=== PATIENT | male | born 1950 | race Caucasian/White ===

== ENCOUNTER 2021-03-11 12:06 | Inpatient (IN) | payer MEDICARE, OTHER ==
[~2021-03-11] VITALS: Ht 157.5 cm; Wt 85.3 kg
[~2021-03-11 12:06] MED LIST: LIPITOR; LISINOPRIL; NITRO; Percocet 5-3251 EACH PO
[2021-03-11 13:33] LABS: BASOPHILS ABSOLUTE AUTO 0.03 K/mm3 (0.00-0.23); BASOPHILS PERCENT AUTO 0 % (0-2); EOSINOPHILS PERCENT AUTO 0 % (0-6); Hemoglobin 14.4 g/dL (13.5-17.5); IMMATURE GRAN ABSOLUTE AUTO 0.03 K/mm3 (0.00-0.10); IMMATURE GRAN PERCENT AUTO 0 % (0-1); LYMPHOCYTES ABSOLUTE AUTO 1.02 K/mm3 (0.84-5.20); LYMPHOCYTES PERCENT AUTO 9 % (21-46); MONOCYTES ABSOLUTE AUTO 0.51 K/mm3 (0.16-1.47); MONOCYTES PERCENT AUTO 5 % (4-13); Mean Corpuscular HGB 30.6 pg (26.0-34.0); Mean Corpuscular HGB Conc 34.3 g/dL (31.5-36.5); Mean Corpuscular Volume 89 fL (80-100); Mean Platelet Volume 11.3 fL (9.1-12.4); NEUTROPHILS ABSOLUTE AUTO 9.68 K/mm3 (1.96-9.15); NEUTROPHILS PERCENT AUTO 86 % (41-73); Platelet Count 222 K/mm3 (150-400); RDW Coefficient Variation 14.3 % (11.7-14.2); RDW Standard Deviation 47.1 fL (35.1-46.3); Red Blood Cell Count 4.71 M/mm3 (4.30-5.90); White Blood Cell Count 11.27 K/mm3 (4.00-11.30)
[2021-03-11 13:46] LABS: Alanine Aminotransfer (ALT/SGP 24 U/L (12-78); Albumin, Blood 3.4 g/dL (3.4-5.0); Albumin/Globulin Ratio 0.7 (0.8-1.8); Alk Phos 114 U/L (50-136); Anion Gap 7 mmol/L (6-16); Aspartate Aminotrans (AST/SGOT 16 U/L (12-37); Bilirubin, Total 0.4 mg/dL (0.1-1.0); Blood Urea Nitrogen 19 mg/dL (8-24); Bun/Creatinine Ratio 22.5 (12.0-20.0); CO2, Blood 25 mmol/L (21-32); Calcium, Blood 8.9 mg/dL (8.5-10.1); Chloride, Blood 108 mmol/L (98-108); Creatinine, Blood 0.85 mg/dL (0.60-1.20); Globulin, Blood 4.7 g/dL (2.2-4.0); Glomerular Filtration Rate >60 (60-); Glucose, Blood 111 mg/dL (70-99); Potassium, Blood 4.4 mmol/L (3.5-5.5); Sodium, Blood 140 mmol/L (136-145); Total Protein, Blood 8.1 g/dL (6.4-8.2)
[2021-03-11 13:58] LABS: Troponin I 0.028 ng/mL (0.000-0.040)
[2021-03-11 14:06] LABS: Source, Urine Clean Catch
[2021-03-11 14:16] LABS: Appearance, Urine Clear (Clear); Bilirubin, Urine Neg (Neg); Blood, Urine 1+ (Neg); Color, Urine Yellow (P-Yellow); Glucose Qualitative, Urine Neg (Neg); Ketones, Urine Neg (Neg); Leukocyte Esterase, Urine Neg (Neg); Nitrite, Urine Neg (Neg); Protein, Urine 3+ (Neg); Specific Gravity, Urine 1.015 (1.003-1.022); Urobilinogen, Urine NORM (Normal); pH, Urine 6.5 (5.0-8.0)
[2021-03-11] MEDS ORDERED: METO25ER PO (14:25)
[2021-03-11] MEDS ORDERED: FURO20 PO (14:26)
[2021-03-11] MEDS ORDERED: ZOCOR20 MG PO ×2 (14:26→17:50)
[2021-03-11] MEDS ORDERED: Aspir 8181 MG PO ×2 (14:26→17:46)
[2021-03-11 14:28] LABS: Bacteria Few /hpf; Squamous Epithelial Cells Rare /hpf (Few); White Blood Cells, Urine 0-2 /hpf (0-5)
[2021-03-11 14:44] LABS: SARS-Cov-2 (COVID-19) PCR, MMC NEGATIVE (NEGATIVE)
[2021-03-11 15:30] LABS: CHOL/HDL RATIO 5.7; Cholesterol 241 mg/dL (50-200); HDL Cholesterol 42 mg/dL (>39); LDL/HDL RATIO 4.3; Low Density Lipoprotein Chol 181 mg/dL (0-110); Triglycerides 90 mg/dL (30-160); Very Low Density Lipoprot Chol 18 mg/dL (6-32)
[2021-03-11] MEDS ORDERED: Flomax0.4 MG PO (17:34)
[2021-03-11] MEDS ORDERED: SPIRIVA RESPIMAT4 G3 INH (17:45)
[2021-03-11] MEDS ORDERED: KAPSPARGO SPRIN25 MG PO (17:47)
--- NOTE | 2021-03-11 19:50 | NUR ---
SHIFT SUMMARY PT IS ORIENTED TO SELF BUT OTHERWISE CONFUSED. PT BECOMES IRRITABLE WITH STAFF. HE DECLINES TO FOLLOW INSTRUCTIONS AND APPEARS TO HAVE SOME DIFFICULTY UNDERSTANDING MORE THAN ONE INSTRUCTION AT A TIME. VSS, BP REMAINS ELEVATED. PT HAS LEFT SIDED WEAKNESS BUT IS ABLE TO WEAKLY MOVE LEFT EXTREMITIES. REPORT GIVEN TO CECILIA PERKINS.
--- NOTE | 2021-03-12 08:11 | NUR ---
SHIFT SUMMARY CONFUSED/UNCOOPERATIVE WITH CARE. PT REFUSING TO COOPERATE WITH FULL ASSESSMENT, WAS ABLE TO DO ASSESSMENT IN SMALL SEGMENTS T/O NIGHT. LEFT SIDED WEAKNESS. INCONTINENT IN ATTENDS AT TIMES. TELEMETRY NSR 70s. BED ALARM ON FOR SAFETY. PT MOVES SELF WELL IN BED. REPORT TO DAY SHIFT RN.
--- NOTE | 2021-03-12 08:15 | NUR ---
pt chewed through tele cables and is refusing to keep on tele box. spoke with dr shahid. sukhdev recieved to [place] tele. sr in the 80's per night rn. pt confused at this time and unable to answer questions appropriatly
--- NOTE | 2021-03-12 12:49 | NUR ---
PATIENT YELLING OUT, DIFFICULT TO CALM. APPEARS ANXIOUS AND DISORIENTED TO PLACE. CALL PLACED TO DR DE LA GARZA, 0.5MG GIVEN IV PER ORDER. PATIENT NOW RESTING CALMLY.
--- NOTE | 2021-03-12 17:38 | NUR ---
SHIFT SUMMARY PT HAS BEEN ALERT, ORIENTED TO SELF AND OCCASIONALLY TO MONTH AND YEAR. HE HAS L SIDE WEAKNESS AND L SIDE NEGLET. HE HAD A SPEECH EVAL AND THERAPY EVAL TODAY. PT IS HIGH ASPIRATION RISK. THERAPY OKAY WITH PT TAKING PILLS IF CRUSHED AND IN THICKENED LIQUIDS, ONE SPOONFUL AT A TIME WHILE SITTING UP. PT HAS BEEN INCONTINENT AND CHANGED MULTIPLE TIMES TODAY. HOWEVER, HE CONTINUES TO PULL APART ATTENS AND HAS NOT KEPT BLANKETS OR GOWN ON. PT WAS SEEN BY DR DE LA GARZA TODAY, AND DR DE LA GARZA SPOKE WITH FAMILY MITCHELL. PT RESTING IN BED, BED ALARM ON.
--- NOTE | 2021-03-13 04:53 | NUR ---
SHIFT SUMMARY PT CONFUSED/UNCOOPERATIVE WITH CARE. LEFT SIDED WEAKNESS. PT REFUSING GOWN/LINENS, THROWS ON FLOOR. PT MOVES SELF WELL IN BED, REFUSING REPOSITIONING ASSISTANCE. ASPIRATION PRECAUTIONS. NO ACUTE CHANGES OVER NIGHT. PT CURRENTLY RESTING IN BED WITH CALL LIGHT IN REACH.
[2021-03-13 05:52] LABS: Hematocrit 44.1 % (37.0-53.0); Hemoglobin 14.6 g/dL (13.5-17.5); Mean Corpuscular HGB 30.2 pg (26.0-34.0); Mean Corpuscular HGB Conc 33.1 g/dL (31.5-36.5); Mean Corpuscular Volume 91 fL (80-100); Mean Platelet Volume 11.7 fL (9.1-12.4); Platelet Count 226 K/mm3 (150-400); RDW Coefficient Variation 14.4 % (11.7-14.2); RDW Standard Deviation 48.4 fL (35.1-46.3); Red Blood Cell Count 4.84 M/mm3 (4.30-5.90); White Blood Cell Count 12.01 K/mm3 (4.00-11.30)
[2021-03-13 06:21] LABS: Albumin, Blood 3.4 g/dL (3.4-5.0); Anion Gap 7 mmol/L (6-16); Blood Urea Nitrogen 21 mg/dL (8-24); Bun/Creatinine Ratio 23.9 (12.0-20.0); CO2, Blood 24 mmol/L (21-32); Chloride, Blood 108 mmol/L (98-108); Creatinine, Blood 0.88 mg/dL (0.60-1.20); Glomerular Filtration Rate >60 (60-); Glucose, Blood 82 mg/dL (70-99); Phosphorus, Blood 3.5 mg/dL (2.5-4.9); Potassium, Blood 4.1 mmol/L (3.5-5.5); Sodium, Blood 139 mmol/L (136-145)
--- NOTE | 2021-03-13 18:23 | NUR ---
SHIFT SUMMARY CLINIMIX INFUSING PER ORDERS, SPOKE WITH DR DE LA GARZA REGARDING SWALLOWING ISSUES. PT UNABLE TO SWALLOW WITHOUT ASPIRATING TODAY. PT INC OF VOID FREQUENTLY, DIFFICULT TO REDIRECT TODAY WITH CONFUSION. BED ALARM ON DURING SHIFT. NEPHEW IN ROOM TO HELP PATIENT REMAIN CALM AND RELIEVE CONFUSION.
--- NOTE | 2021-03-14 03:25 | NUR ---
IV DISCONNECTED PT PULLED IV TUBING OUT OF CASETTE ON IV PUMP WITH BLOOD SPILLING THROUGH CONNECTED TUBING TO LEFT FA IV ONTO LINENS/FLOOR. IV FLUSHED + PATENT, NEW TUBING FOR CLINIMIX TO RESUME AND IV WRAPPED WITH PELON WRAP + TUBING HIDDEN. LINENS CHANGED + FLOOR CLEANED. VSS. NO ACUTE CHANGE IN PT'S CONDITION. WILL MONITOR AM LABS.
[2021-03-14 05:09] LABS: Hematocrit 42.3 % (37.0-53.0); Mean Corpuscular HGB 30.3 pg (26.0-34.0); Mean Corpuscular HGB Conc 33.1 g/dL (31.5-36.5); Mean Corpuscular Volume 92 fL (80-100); Platelet Count 224 K/mm3 (150-400); RDW Coefficient Variation 14.6 % (11.7-14.2); RDW Standard Deviation 48.9 fL (35.1-46.3); Red Blood Cell Count 4.62 M/mm3 (4.30-5.90); White Blood Cell Count 13.47 K/mm3 (4.00-11.30)
[2021-03-14 05:30] LABS: Albumin, Blood 3.4 g/dL (3.4-5.0); Anion Gap 6 mmol/L (6-16); Blood Urea Nitrogen 31 mg/dL (8-24); CO2, Blood 26 mmol/L (21-32); Calcium, Blood 8.9 mg/dL (8.5-10.1); Chloride, Blood 106 mmol/L (98-108); Creatinine, Blood 0.91 mg/dL (0.60-1.20); Glomerular Filtration Rate >60 (60-); Glucose, Blood 108 mg/dL (70-99); Magnesium, Blood 2.3 mg/dL (1.6-2.4); Phosphorus, Blood 3.7 mg/dL (2.5-4.9); Potassium, Blood 3.9 mmol/L (3.5-5.5); Sodium, Blood 138 mmol/L (136-145); Triglycerides 155 mg/dL (30-160)
--- NOTE | 2021-03-14 06:22 | NUR ---
SHIFT SUMMARY CONFUSED/RESISTANT TO CARE. PT RESTING WELL THIS AM. HOB ELEVATED, TURN Q2H. LUNG SOUNDS DIMINISHED WITH WHEEZES, X1 BREATHING TX. UPPER AIRWAY WITH "GURGLING" SOUND T/O NIGHT, PT ENCOURAGED TO COUGH + DEEP BREATH WITH NO SUCCESS. PT REPOSITIONED + SUCTIONED TOLERATED WITH SOME SUCCESS REMOVING SECRETIONS. PT STRICT ASPIRATIONS PRECAUTIONS, FOLLOW SPEECH EVAL ORDERS. VSS. ON RA. PT INCONTINENT ON PAD PT PULLS OFF GOWNS/ATTENDS. CLINIMIX PER ORDERS + IV WRAPPED AND HIDDEN WITH PELON WRAP FOR SAFETY. BED ALARM ON. CALL LIGHT IN REACH.
--- NOTE | 2021-03-14 10:48 | NUR ---
PT TRANSFERRED TO [facility], REPORT GIVEN TO RN.
--- NOTE | 2021-03-14 18:36 | NUR ---
ASSUMED CARE FOR PT TODAY. PT AGITATED IN BED AND PULLING GOWN AND BLANKETS OFF. PT CONTINUES TO BE CONFUSED TO WHAT DAY IT IS AND WHERE HE IS AT. PT REPOSITIONED AND CHANGED. PT SUCTIONED FREQUENTLY FOR EXCESS SECRETIONS. PT CONTINUES TO HAVE PRODUCTIVE COUGH. PRN ALBUTEROL NEB GIVEN BY THIS RN. PT ON 1L O2 PRN TO KEEP O2 ABOVE 95%. PT PULLING O2 TUBING OFF NOSE. PT UNABLE TO NOTIFY RN OR MA IF NEEDING TO USE RESTROOM, BRIEFS CHANGED SOILED. PTS NIECE CALLED TO CHECK IN. NIECE STATED HER (TOBIAS) WILL COME STAY THE NIGHT WITH PT TO KEEP HIM CALM. THIS RN CALLED ENERGY SYSTEMS ENGINEER DR. PACHECO FOR ORDER FOR IV PAIN MEDICATION FOR HEADACHE. RECEIVED ORDER FOR TORADOL 15MG IVP ONCE. AWAITING MED AVAILABILITY. PLAN FOR SPEECH THERAPY TOMORROW. WILL CONTINUE TO MONITOR AND GIVE REPORT TO ONCOMING GRANT OFFICER RN.
--- NOTE | 2021-03-15 00:24 | NUR ---
PT WANTING WET WASH CLOTH TO WIPE LIPS, ORAL SUCTIONING DONE PRN WET COPIOUS SECRETIONS. PT TURNED Q2HRS AND PRN KERRIE CARE DONE WITH ATTENDS CHANGING.
--- NOTE | 2021-03-15 00:45 | NUR ---
MARIBELL ON IV SITE FOR SAFETY OF IV.
--- NOTE | 2021-03-15 02:04 | NUR ---
ORAL SUCTIONING DONE FOR WHITE FROTHY SECRETIONS. PT RESISTANT TO ORAL SUCTIONING BUT ABLE TO DO IT OVER TIME. PT PULLING SHEET/BLANKET OFF, HITTING THE RIGHT SIDE RAIL. CONT TO MONITOR.
--- NOTE | 2021-03-15 03:04 | NUR ---
ORAL SUCTIONING DONE, PT VERY ANGRY WITH IT HAPPENING. PT CONSTANTLY TOUCHING GROIN THROUGH THE NOC, ATTENDS REPOSITIONED Q 10MINUTES, PT KEEPS PULLING HIS PRIVATES BACK OUT. PILLOW PUT OVER GROIN WITH NO SUCCESS FROM HIM CONTINUING TO TOUCH HIMSELF. CONT TO MONITOR.
--- NOTE | 2021-03-15 03:42 | NUR ---
ORAL SUCTIONING DONE, PT VERY AGGITATED WITH RN DOING IT DURING VITAL SIGNS. PT QUICKLY BACK TO SLEEP.
--- NOTE | 2021-03-15 05:08 | NUR ---
PT AWAKE MOST OF THE NIGHT, CONSTANTLY PICKING AT HIS SKIN OR RUBBING HIS GENITALS. ATTENDS REPOSITIONED FREQUENTLY TO KEEP HIS GENITALS IN. FREQUENT ORAL SUCTIONING DONE WITH PT BECOMING VERY AGGITATED WITH RN DOING IT. PT PULLED OFF EVERY SHEET/BLANKET PUT ON HIM. HOB 60 DEGREES THROUGH THE NIGHT. FAMILY LEFT APPROXIMATELY 2300.
--- NOTE | 2021-03-15 07:32 | NUR ---
Upon arriving to assess patient patient was found with large amounts of yellow sputum needing multiple suctioning episodes. Patient ripping off oxygen tubing. Patient does not respond appropriately verbally to questions given by this nurse. IV found to be pulled out of LFA with large infiltration spot to LFA. Area cleansed and coban applied. IV restarted with 2nd nurse assistance into RAC and wrapped in kody bandage to attempt preventing patient pulling. IV was ripped out ten minutes later. Patient batting my hand away aggressively when attempting to assess patient skin on back and side. Multiple spots appear to have patient picking at them and bleeding. called and notified of these patient episodes this morning including no iv access at this point. refusing NC, and reports from last night nurse including multuple combative episodes. Patient does not appear to know how to use arielle light or call out to nurse if he needed assistance. will continue to monitor closely.
[2021-03-15 07:53] LABS: BASOPHILS ABSOLUTE AUTO 0.02 K/mm3 (0.00-0.23); BASOPHILS PERCENT AUTO 0 % (0-2); EOSINOPHILS ABSOLUTE AUTO 0.02 K/mm3 (0.00-0.68); EOSINOPHILS PERCENT AUTO 0 % (0-6); Hematocrit 41.5 % (37.0-53.0); Hemoglobin 13.4 g/dL (13.5-17.5); IMMATURE GRAN ABSOLUTE AUTO 0.02 K/mm3 (0.00-0.10); IMMATURE GRAN PERCENT AUTO 0 % (0-1); LYMPHOCYTES ABSOLUTE AUTO 0.94 K/mm3 (0.84-5.20); LYMPHOCYTES PERCENT AUTO 10 % (21-46); MONOCYTES ABSOLUTE AUTO 0.99 K/mm3 (0.16-1.47); MONOCYTES PERCENT AUTO 11 % (4-13); Mean Corpuscular HGB 30.6 pg (26.0-34.0); Mean Corpuscular HGB Conc 32.3 g/dL (31.5-36.5); Mean Corpuscular Volume 95 fL (80-100); Mean Platelet Volume 11.6 fL (9.1-12.4); NEUTROPHILS ABSOLUTE AUTO 7.27 K/mm3 (1.96-9.15); NEUTROPHILS PERCENT AUTO 79 % (41-73); Platelet Count 181 K/mm3 (150-400); RDW Coefficient Variation 14.5 % (11.7-14.2); RDW Standard Deviation 50.5 fL (35.1-46.3); Red Blood Cell Count 4.38 M/mm3 (4.30-5.90); White Blood Cell Count 9.26 K/mm3 (4.00-11.30)
--- NOTE | 2021-03-15 07:57 | NUR ---
PATIENT CONTINUES TO PULL PENIS OUT AND MASTERBATE OR EXPOSE HIMSELF. ENCOURAGING PATIENT TO NOT DO THIS IN FRONT OF OTHERS AND STAFF. PATIENT CONFUSED AND STATES " YOU DO IT FOR ME THEN"
--- NOTE | 2021-03-15 08:15 | NUR ---
PATIENT TORE OFF ID BAND FROM WRIST. NEW BAND APPLIED TO RIGHT ANKLE. SUCTIONING PERFORMED AGAIN WITH ENCOURAGEMENT TO TRY TO COUGH DEEP BREATH.
[2021-03-15 08:16] LABS: Anion Gap 8 mmol/L (6-16); Blood Urea Nitrogen 31 mg/dL (8-24); Bun/Creatinine Ratio 38.4 (12.0-20.0); CO2, Blood 22 mmol/L (21-32); Calcium, Blood 8.9 mg/dL (8.5-10.1); Chloride, Blood 107 mmol/L (98-108); Creatinine, Blood 0.81 mg/dL (0.60-1.20); Glomerular Filtration Rate >60 (60-); Glucose, Blood 91 mg/dL (70-99); Magnesium, Blood 2.3 mg/dL (1.6-2.4); Phosphorus, Blood 4.4 mg/dL (2.5-4.9); Potassium, Blood 4.4 mmol/L (3.5-5.5); Sodium, Blood 137 mmol/L (136-145)
--- NOTE | 2021-03-15 08:47 | NUR ---
20 G IV PLACED IN R FA s DIFFICULTY. SITE WRAPPED IN PELON WRAP TO PREVENT DC. ASSISTED BY TECH.
--- NOTE | 2021-03-15 09:13 | NUR ---
ASSISTED PATIENT WITH ORAL CARE AND SUCTIONING. REPOSITIONED TO HIGH FOWLERS. LINENS CHANGED. PATIENT REACHING UP INTO AIR CONFUSED OR TAPPING ARM RAIL. SEEMS LESS AGITATED THAN BEFORE. CALL LIGHT IN REACH. WILL CONTINUE TO MONITOR.
--- NOTE | 2021-03-15 09:22 | NUR ---
1ST ATTEMPTED OF IV START RIPPED OUT BY PATIENT. 2ND ATTEMPT IV STARTED IN LFA SUCCESSFUL AND WRAPPED IN PELON BANDAGE.
--- NOTE | 2021-03-15 11:33 | NUR ---
BREATHING TREATMENT OF ALBUTEROL GIVEN FOR AUDIBLE WHEEZING AND CRACKLES NOTED. FAMILY OF PATIENT IN TOUCH WITH PALLATIVE CARE NURSE AND WOULD LIKE TO WAIT ON COMFORT CARE AND HOSPICE MEASURES OF RIGHT NOW. ASSISTED PATIENT WITH REPOSITIONING TO LEFT TILT. PATIENT DOES NOT WANT TO WEAR GOWN OR LINENS OF RIGHT NOW. WILL CONTINUE TO MONITOR/ BED ALARM WATER TREATMENT PLANT MECHANIC LIGHT IN REACH.
--- NOTE | 2021-03-15 11:44 | NUR ---
Pt resting slightly labored and splinting. Review of patient with nursing review of OT and PT notes. [facility]. Called his niece to review his medical care and needs. Review of his labs and symptoms and prognosis. We reviewed his symptoms at home and his curent medications. She states he was still smoking heavily and having more lower back pain. we reviewed his echo and scans and cardiac funtion. discussed how an event like this one could lead to more kidney and organ dysfuntions. His niece is a practicing nurse. The family is dicussing his care. We settled on seeing how he does today with incresed dosing on the nicotine patch and some pain control. We will start with rectal tylenol since he is not swallowing. Nurse gave him some zyprexa. Increase his nicotine patch. Have speech see him and monitor his dani function. They do not want full code and state he would not want that. Will complete a polst. We discussed comfort care if he cannot rehab. They are understanding that might be the best choice and will discuss if further. Advised them that if he goes on hospice and improves we can revisit rehab. updated nursing and physician.
--- NOTE | 2021-03-15 13:03 | NUR ---
PATIENT WITH KERRIE CARE AND ATTENDS CHANGE. SUCTIONING PERFORMED FOR EXCESSIVE SECRETIONS. ATROPINE DROPS AND TYLENOL GIVEN PER ORDERS. PATIENT REPOSITIONED IN BED BOOSTED AND TURNED TO LEFT LATERAL. PT STILL TAKING OFF GOWN AND BLANKETS. BED ALARM ON AND CALL LIGHT IN REACH. WILL CONTINUE TO MONITOR CLOSELY FOR CHANGES.
--- NOTE | 2021-03-15 14:49 | NUR ---
REPOSITIONED PATIENT TO RIGHT LATERAL AFTER BOOSTING PATIENT UP IN BED. PATIENT WITH AUDIBLE WHEEZING AND COPIUS AMOUNTS OF YELLOW THICK SPUTUM PRODUCTION SUCTIONED FROM ORAL AIRWAY. LINENS CHANGED . DEPENDS CHANGED AND KERRIE CARE PERFORMED. PATIENT SEEMS AGITATED HITTING SIDE OF BEDRAILS AND ROLLING AROUND IN BED OFTEN. PATIENT HITTING HAND AWAY WHEN TRYING TO PERFORM CARE AND BREATHING TREATMENT. PATIENT PICKING AT SKIN AND TRYING TO TUG ON IV. ENCOURAING PATIENT TO COUGH AND DEEP BREATH. BED ALARM ON AND CALL LIGHT IN REACH. WILL CONTINUE TO MONITOR CLOSELY FOR CHANGES.
--- NOTE | 2021-03-15 16:11 | NUR ---
PATIENT WITH MORE LABORED BREATHING. STILL REFUSING TO WEAR OXYGEN AND TAKES IT OFF. SUCTIONING OFTEN WITH LARGE AMOUNTS OF SECRETIONS. ATTENDS CHANGED AND KERRIE CARE PERFORMED/ PATIENT BOOSTED AND REPOSITIONED. PATIENT DOES NOT COHERENTLY RESPOND WHEN SPOKEN TO. EYE DRAINAGE NOTED/ CLEANSED FACE WITH WASH CLOTH AND WATER. BED ALARM ON AND CALL LIGHT IN REACH.
--- NOTE | 2021-03-15 17:33 | NUR ---
FAILY AT BEDSIDE HOLDING PATIENTS HAND. PT NOT RESPONDING. SUCTIONING PERFORMED FOR AUDIBLE WET SOUNDS AND GURGLING. BREATHING TREATMENT HELD AND DONE BLOW BY. QUESTIONS ANSWERED FOR FAMILY. DENIES ANY OTHER NEEDS AT PRESENT/ EDUCATED PUBLIC SERVICE REPRESENTATIVE LIGHT SYSTEM.
--- NOTE | 2021-03-15 19:09 | NUR ---
pt looks a little more comfortable, non verbal no eye opening, granduahghter at bedside. mutiple reviews with familyof plan and prognosis. pt left arm looks worse this evening. he is still very coarse. Again discussed giving him a chance if he does not wake up or labs and function worse they are still willing to look at comfort care. Will review with physician tomorrow
--- NOTE | 2021-03-15 20:11 | NUR ---
PT WITH COBAN WRAPPED OVER IV SITE FOR PROTECTION.
--- NOTE | 2021-03-16 02:27 | NUR ---
PT SUCTIONED, AND ORAL CARE PROVIDED. COPIOUS AMOUNTS OF GALVEZ COLORED SECRETIONS WERE SUCTIONED FROM PATIENTS OROPHARYNX, USING A SOFT SUCTION CATHETER. AFTER MULTIPLE PASSES, PATIENTS AIRWAY WAS CLEARED, AND HIS BREATHING SOUNDED LESS OBSTRUCTED AND LABORED.
--- NOTE | 2021-03-16 03:02 | NUR ---
PT SUCTIONED FOR THICK, CREAMY SECRETIONS. PT PULLED HEAD AWAY AND CLOSED MOUTH BUT VERY WEAK. ATROPINE 2 DROPS GIVEN PRN FOR SECRETIONS. BLANKET ON PT. HOB 90 DEGREES. NO URINE OUTPUT IN THE LAST 4 HOURS. CONTINUE TO MONITOR.
--- NOTE | 2021-03-16 04:19 | NUR ---
ORAL SUCTIONING DONE FOR THICK/GALVEZ SECRETIONS. NO URINE OUTPUT YET DURING THEN NOC.
--- NOTE | 2021-03-16 04:56 | NUR ---
ATROPINE DROPS GIVEN Q 2HRS THROUGH THE NIGHT ALONG WITH ALBUTEROL NEB TREATMENTS PRN FOR COMFORT.
--- NOTE | 2021-03-16 05:35 | NUR ---
PT LESS AND LESS RESPONSIVE TO SUCTIONING THROUGH THE NIGHT. TEMPS 99 DEGREES PLUS, HR IN THE MID 30'S. LEFT ARM IS SWELLING, KEPT UP ON A PILLOW THROUGH THE NIGHT. PT SUCTIONED VERY FREQUENTLY THROUGH THE NIGHT BUT SECRETIONS CONTINUE TO INCREASE. HOB 45 DEGREES, BED IN LOW/LOCKED POSITION, CALL LIGHT IN REACH.
--- NOTE | 2021-03-16 05:49 | NUR ---
PATIENT SUCTIOMED WITH SOFT SUCTION CATHETER. SMALL AMOUNT OF GALVEZ COLORED SECRETIONS SUCTIONED FROM PTS OROPHARYNX.
--- NOTE | 2021-03-16 08:01 | NUR ---
ORAL CARE PERFORMED WITH ORAL SUCTION SWAB. MOUTH MOISTURIZER APPLIED. COPIUS AMOUNTS OF YELLOW THICK SPUTUM SUCTIONED WITH AUDIBLE GURGILING. PATIENT STILL TAKING OFF NC FOR OXYGEN REFUSING TO WEAR. BED ALARM AND CALL LIGHT IN REACH. WILL CONTINUE TO MONITOR CLOSELY.
--- NOTE | 2021-03-16 09:30 | NUR ---
PATIENT BOOSTED INTO BED. PILLOW ADJUSTED AND PATIENT SUCTIONED WITH ORAL CARE PERFORMED. WILL CONTINUE TO MONITOR.
--- NOTE | 2021-03-16 10:07 | NUR ---
ORAL CARE PERFORMED WITH MOUTH MOISTURIZER APPLIED. BREATHING TREATMENT GIVEN VIA BLOW BY DUE TO AUDIBLE GURGLING AND WHEEZING. SUCTIONING PERFORMED FOR LARGE AMOUNTS OF SPUTUM. PATIENT REPOSITIONED INTO LEFT TILT WITH LIMBS ELEVATED.
--- NOTE | 2021-03-16 10:31 | NUR ---
PATIENT ATTENDS CHANGED, KERRIE CARE PERFORMED, PATIENT SEEMS AGITATED WITH LABORED BREATHING. AUDIBLE GURGLING NOTED. PATIENT REPOSITIONED TO LEFT LATERAL WITH LIMBS ELEVATED. PALLATIVE CARE NURSE ON PHONE WIH FAMILY MEMBER ATTEMPTING COMFORT CARE OPTIONS DUE TO PATIENTS DECLINING STATUS.
--- NOTE | 2021-03-16 13:16 | NUR ---
DR. MARTINS CALLED AND NOTIFIED THAT PATIENTS IV INFILTRATED AND REMOVED. STATES OKAY TO NOT RESTART IV AND DISCONTINUE IVF.
--- NOTE | 2021-03-16 16:53 | NUR ---
FAMILY AT BEDSIDE WITH PATIENT. DENIES NEEDS AT PRESENT. QUESTIONS ANSWERED FOR FAMILY. EDUCATED RENEWABLE ENERGY TECHNICIAN LIGHT SYSTEM.
--- NOTE | 2021-03-16 17:30 | NUR ---
PATIENT SHOWING LABORED BREATHING SIGNS WITH PRODUCTIVE SECRETIONS BEING SUCTIONED. FAMILY AT BEDSIDE WITH PATIENT. SUCTION PERFORMED. WILL CONTINUE TO MONITOR CLOSELY
--- NOTE | 2021-03-16 18:57 | NUR ---
met with patients family he is much more comfortable. lungs are more coarse.
--- NOTE | 2021-03-16 23:40 | NUR ---
PT.WITH RATTLY SECRETIONS. PT. ORALLY SUCTIONED FOR THICK WHITE SECRETIONS. BLOW BY CONTINUES. PT.OBSERVED TO BE COMFORTABLE. NEPHEW WENT HOME FOR THE NIGHT. LIP MOISTURIZER APPLIED.
--- NOTE | 2021-03-17 01:28 | NUR ---
PT. SUCTIONED FOR LARGE AMT. THICK WHT. SECRETIONS. PT.DOES GRAB WITH HIS RIGHT HAND WHEN SUCTIONED. ORAL CARE DONE WITH SLATER SUCTION SWAB & SWABBED WITH MOISTURE PACK IN KIT. RIGHT EYE OBSERVED TO BE CRUSTY & SMALL AMT. OOZING. WARM WASH CLOTH PLACED ON EYE TO MOISTEN & EYE CLEANSED GENTLY. PT.INCONTINENT OF URINE & LEAKS SMALL AMT. URINE WHEN BEING CHANGED.
--- NOTE | 2021-03-17 05:06 | NUR ---
PT. ORALLY SUCTIONED FOR LARGE AMT. THICK WHT. SECRETIONS.
--- NOTE | 2021-03-17 05:18 | NUR ---
PT. WITH BLOW BY INSTEAD OF RA ON 2ND SET OF VITALS APPROX.[id number].
--- NOTE | 2021-03-17 06:18 | NUR ---
PT. TURNED OFTEN T.O. NIGHT. PT. SUCTIONED FREQUENTLY FOR THICK WHT. SECRETIONS. ORAL CARE WAS DONE WITH SLATER SUCTION SWAB X2 T.O. NIGHT. PT. INCONTINENT OF URINE EACH TIME PT. WAS TURNED. PT.TURNED LAST AROUND 0600 & WAS SUCTIONED & ORAL CARE DONE. PT. GAVE A THUMBS UP WHEN THIS WAS DONE. PT. WAS ASKED IF HE HAD ANY PAIN, NO RESPONSE. PT.DOES GRIMACE WITH TURNS & GRABS WITH HIS RIGHT HAND. PT. WAS MEDICATED WITH ROXANOL & ATROPINE DROPS PER ORDER. PT.'S FAMILY DID COME & SIT WITH PT. FOR AWHILE DURING THE NIGHT. PT. SLEEPING T.O. NIGHT EXCEPT WHEN TURNING & ORAL CARE BEING DONE.
--- NOTE | 2021-03-17 09:33 | NUR ---
PT TURNED ONTO BACK WITH BLOWBY PLACED ON PILLOW. O2 SATS DROP DOPPING DOWN TO 86%. AFTER SUCTIONING O2 GOES UP TP 91%. SEEMS TO BE RESTING COMFORTABLY UNTIL USING SUCTION.
--- NOTE | 2021-03-17 10:12 | NUR ---
ORAL CARE PROVIDED, O2 SAT AT 95% AFTER SUCTIONING. PT DOES NOT RESPOND TO VERBAL STIMULI.
--- NOTE | 2021-03-17 12:11 | NUR ---
PT TURNED AND GIVEN ORAL CARE ALONG WITH MEDICATION. IS RESTING COMFORTABLY.
--- NOTE | 2021-03-17 12:12 | NUR ---
CALLED REPORT TO LUIS AT [facility]. PT GOING TO ROOM A121. WAITING FOR COVID TEST BEFORE WE CAN TRANSFER.
[2021-03-17 12:19] LABS: SARS-Cov-2 (COVID-19) PCR, MMC NEGATIVE (NEGATIVE)
--- NOTE | 2021-03-17 13:38 | NUR ---
PT TURNED AND SUCTIONED. WAS ABLE TO GIVE A THUMBS UP REGARDING HIS CARE. HE DID HAVE A WET DEPENDS. IS USING ACCESORY MUSCLES FOR BREATHING. WAS GIVEN ATROPINE AND ROXINOL.
--- NOTE | 2021-03-17 14:09 | NUR ---
PHONE CALL FROM LUIS AT [facility]. SHE WAS CALLING TO SEE IS PATIENT WAS STILL HERE. SHE REQUESTED AT COPY OF HIS DISCHARGE ORDERS BE FAXED TO [phone]. PT RESTING COMFORTABLY.
--- NOTE | 2021-03-18 17:39 | NUR ---
[facility] with condol[facility].
== END 2021-03-17 14:37 | disposition hospice, inpatient (51) | DRG 64 ==
LOC: ER 12:06 → ERHOLD 12:07 → SURS 16:13 → ORSCIP 03-12 16:38 → ER 03-12 16:38 → ERHOLD 03-12 16:38 → ORSCIP 03-14 10:04 → SURS 03-14 10:04 → ORSCIP 03-17 14:37
PROVIDERS: Emergency Medicine; Internal Medicine; ADMIT Family Medicine
DX: I63.9 Cerebral infarction, unspecified (principal); J69.0 Pneumonitis due to inhalation of food and vomit; G93.49 Other encephalopathy; G81.94 Hemiplegia, unspecified affecting left nondominant side; I25.10 Atherosclerotic heart disease of native coronary artery without angina pectoris; Z66 Do not resuscitate; I35.0 Nonrheumatic aortic (valve) stenosis; Z86.73 Personal history of transient ischemic attack (TIA), and cerebral infarction without residual deficits; Z51.5 Encounter for palliative care; Z79.82 Long term (current) use of aspirin; Z79.899 Other long term (current) drug therapy; E78.5 Hyperlipidemia, unspecified; F17.200 Nicotine dependence, unspecified, uncomplicated; Z98.890 Other specified postprocedural states; F17.210 Nicotine dependence, cigarettes, uncomplicated; R29.810 Facial weakness; I65.21 Occlusion and stenosis of right carotid artery
CPT/HCPCS: 36415; 70450; 80053; 80061; 80069; 81001; 82550; 83735; 84478; 84484; 85025; 85027; 92526; 92610; 93005; 93010; 93880; 96372; 96374; 97163; 97166; 97530; 99285-25; A9270; G0378; J0360; J1650; J1885; J2060; J7030; U0004